=== PATIENT | male | born 1955 | race Caucasian/White ===

== ENCOUNTER 2024-07-23 07:39 | Day surgery (SDC) | payer BC, MEDICARE, OTHER ==
[2024-07-23] MEDS: Lactated Ringers 1,000 ML IV SCH (08:00)
[2024-07-23] MEDS ORDERED: Sodium Chloride 0.9% 10 ML Syringe FLUSH PRN (08:25)
[2024-07-23] MEDS ORDERED: Sodium Chloride 0.9% 10 ML Syringe FLUSH SCH (09:00)
[2024-07-23] MEDS ORDERED: Lidocaine 1% 4 ML ONE (09:07)
[2024-07-23] MEDS ORDERED: Propofol 200 MG/20 ML SDV ONE ×2 (09:07→09:53)
[2024-07-23] MEDS ORDERED: Lactated Ringers 1,000 ML ONE (09:19)
== END 2024-07-23 10:57 | disposition home or self-care (01) ==
LOC: JD.SDS 07:39
PROVIDERS: ATTEND Surgery
DX: Z12.11 Encounter for screening for malignant neoplasm of colon (principal); D12.3 Benign neoplasm of transverse colon; D12.8 Benign neoplasm of rectum; K57.30 Diverticulosis of large intestine without perforation or abscess without bleeding; K64.8 Other hemorrhoids; E78.5 Hyperlipidemia, unspecified; Z87.891 Personal history of nicotine dependence; Z79.899 Other long term (current) drug therapy
CPT/HCPCS: 45380; 88305; 93005; J2704; J7120; 00811; 93010; J3490